=== PATIENT | female | born 1985 | race African-American/Black ===

== ENCOUNTER 2017-04-06 19:14 | Emergency (ER) | payer BC, OTHER ==
[~2017-04-06] VITALS: Ht 160 cm; Wt 89.8 kg
[~2017-04-06 19:14] MED LIST: AMOXICILLIN875 MG PO; IBUPROFEN 800800 MG PO; NAPROSYN500 MG PO; NOHOMEMEDICATIONS; NORCO 5-325 TA1 EACH PO; PROMETHAZINE-C120 ML PO
[2017-04-06] MEDS ORDERED: NORFLEX100 MG PO (20:06)
[2017-04-06] MEDS ORDERED: IBUPROFEN 800800 M1 PO (20:06)
[2017-04-06 21:24] VITALS: BP 110/69
== END 2017-04-06 21:26 | disposition home or self-care (01) ==
LOC: ER 19:14
DX: S39.012A Strain of muscle, fascia and tendon of lower back, initial encounter (principal); S16.1XXA Strain of muscle, fascia and tendon at neck level, initial encounter; V49.9XXA Car occupant (driver) (passenger) injured in unspecified traffic accident, initial encounter; Y93.89 Activity, other specified; Y92.89 Other specified places as the place of occurrence of the external cause; Y99.8 Other external cause status

== ENCOUNTER 2018-05-15 15:21 | Emergency (ER) | payer BC, OTHER ==
[~2018-05-15] VITALS: Ht 160 cm; Wt 90.7 kg
[~2018-05-15 15:21] MED LIST changes: +IBUPROFEN 800800 M1 PO; +NORFLEX100 MG PO
[2018-05-15] MEDS ORDERED: ULTRAM 50MG TAB50 MG PO (17:45)
[2018-05-15 18:07] VITALS: BP 122/100
== END 2018-05-15 18:08 | disposition home or self-care (01) ==
LOC: ER 15:21
DX: M79.9 Soft tissue disorder, unspecified (principal)

== ENCOUNTER 2021-06-16 11:47 | Emergency (ER) | payer OTHER ==
[~2021-06-16] VITALS: Ht 160 cm; Wt 95.3 kg
--- NOTE | ~2021-06-16 | EMS ---
[address] [address] EMS Patient Care Report Name: JIMMIE HAY Room #: REG HADLEY Lee#: [id number] Admission: 06/16/21 Attend Phys: Discharge: Date of : 81 Report #: [id number] THIS REPORT FOR: //name// Report Transmitted: 06/16/2021 14:13 EMS Care Summary [place], [place]/[facility] Incident [id number] @ 06/16/2021 11:10 Incident Location [address] [place] [address] Patient JOENL HAY Female, 36 Years 1985 Patient Address [address] [place] [address], [place] [address] Patient History None Reported, Patient Allergies No known allergies, Patient Medications None Reported, Chief Complaint Lumbar Back Pain Disposition Transported No Lights/Natalia Dispatch Reason Falls Transported To [facility] Narrative Pt stated 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 Pt is C/O lower back pain that is constant and Pt rated her pain at a 6/10 post fall. Pt denied any LOC, No Neck and or Back pain and no LOC and is a GCS 15. Pt is with no other complaints [address] [address] EMS Patient Care Report Name: JIMMIE HAY Room #: REG Jesus#: [id number] Admission: 06/16/21 Attend Phys: Discharge: Date of : 81 Report #: [id number] noted. Pt found laying flat on her back with staff around her, Pt is with lumbar back pain from a fall in the Gymnasium. Pt stated she was walking and tripped over a object and landed on her tailbone and is C/O Lumbar pain on palpation of area. Pt is with no deformity noted on inspection / Palpation of area on eval by EMS. Ot denied any LOC, no neck and or upper back pain and is a GCS 15. Pt is with no other complaints noted and received by RN in ER. Initial Vitals @11:42P: 99,R: 18,BP: 130/36,Pain: 8/10,GCS: 15,SpO2: 99,Revised Trauma: 12, @11:31P: 94,R: 18,BP: 141/81,Pain: 6/10,GCS: 15,SpO2: 100,Revised Trauma: 12, Assessments @11:22MENTAL:Person Oriented,Time Oriented,Event Oriented,Place Oriented,SKIN:HEENT:Head/Face: No Abnormalities,Neck/Airway: No Abnormalities,LUNG SOUNDS:General: No Abnormalities,ABDOMEN:General: No Abnormalities,PELVIS//GI:No Abnormalities,EXTREMITIES:Capillary Refill: Left Upper: < 2 Sec,Left Arm: No Abnormalities,Right Arm: No Abnormalities,Left Leg: No Abnormalities,Right Leg: No Abnormalities,PULSE:Radial: 2+ Normal,NEURO:No Abnormalities,@11:40MENTAL:Time Oriented,Person Oriented,Place Oriented,Event Oriented,SKIN:HEENT:Head/Face: No Abnormalities,Neck/Airway: No Abnormalities,LUNG SOUNDS:General: No Abnormalities,ABDOMEN:General: No Abnormalities,PELVIS//GI:No Abnormalities,EXTREMITIES:Capillary Refill: Left Upper: < 2 Sec,Left Arm: No Abnormalities,Right Arm: No Abnormalities,Left Leg: No Abnormalities,Right Leg: No Abnormalities,PULSE:Radial: 2+ Normal,NEURO:No Abnormalities, Impression Back Pain Procedures @11:22 ALS Assessment Response: UnchangedSucceeded @11:24 Scoop Stretcher Response: Unchanged Timeline 11:08,Call Received 11:08,Dispatch Notified 11:10,Dispatched 11:12,En Route 11:17,On Scene 11:19,At Patient 11:22,ALS Assessment,Response: UnchangedSucceeded, 11:24,Scoop Stretcher,Response: Unchanged 11:31,BP: 141/81 M,PULSE: 94,RR: 18 R,SPO2: 100 Ox,ETCO2: ,BG: ,PAIN: 6,GCS: [address] [address] EMS Patient Care Report Name: JIMMIE HAY Room #: REG [facility] [id number] Admission: 06/16/21 Attend Phys: Discharge: Date of : 81 Report #: [id number] 15, 11:36,Depart Scene 11:42,At Destination 11:42,BP: 130/36 M,PULSE: 99,RR: 18 R,SPO2: 99 Ox,ETCO2: ,BG: ,PAIN: 8,GCS: 15, 12:04,Call Closed Disclaimer [email or web address] Copyright 2020 [employer] This EMS Care Summary contains data elements from the applicable legal record (which may be displayed differently). It is designed to provide pertinent information for the following purposes: continuity of care, clinical quality, and state data reporting. The complete legal record is available to ED staff and administrators of the receiving hospital in [employer]'s Patient Tracker. All data is provided "as is."
[~2021-06-16 11:47] MED LIST changes: +ULTRAM 50MG TAB50 MG PO
[2021-06-16] MEDS ORDERED: FLEXERIL PO (14:56)
[2021-06-16 15:35] VITALS: BP 112/82
== END 2021-06-16 15:36 | disposition home or self-care (01) ==
LOC: ER 11:47
DX: S70.11XA Contusion of right thigh, initial encounter (principal); W19.XXXA Unspecified fall, initial encounter; Y93.89 Activity, other specified; Y92.218 Other school as the place of occurrence of the external cause; Y99.8 Other external cause status